=== PATIENT | female | born 1975 | race Caucasian/White ===

== ENCOUNTER 2017-06-12 21:52 | Emergency (ER) | payer OTHER ==
[2017-06-12] MEDS ORDERED: Proparacaine 0.5% Opth 15 ML BOT ONE (22:02)
[2017-06-12] MEDS ORDERED: Fluorescein Opthalmic Strip ONE (22:02)
== END 2017-06-12 22:26 | disposition home or self-care (01) ==
LOC: SCSER 21:52
DX: H10.9 Unspecified conjunctivitis (principal); F41.9 Anxiety disorder, unspecified; Z79.899 Other long term (current) drug therapy
CPT/HCPCS: 99283

== ENCOUNTER 2017-08-23 13:04 | Emergency (ER) | payer OTHER ==
[2017-08-23 13:58] LABS: Bilirubin Negative (Negative); Blood, Urine Large (Negative); Clarity CLOUDY (Clear); Glucose, Urine (Dipstick) Negative (Negative); Leukocyte Small (Negative); Nitrite Negative (Negative); Protein, Urine (Dipstick) > or equal to 300 mg/dL (Neg-Trace); Specific Gravity, Urine 1.017 (1.002-1.036); Urobilinogen 0.2 mg/dL (0.2-1.0); pH, Urine 6.5 (5.0-9.0)
[2017-08-23 14:00] LABS: Bacteria/HPF 3+ HPF (None Seen); Hyaline Casts/LPF 0-3 HYALINE CAST LPF (0-3 Hyaline); RBC/HPF 21-50 HPF (0-3); Squamous Epithelial 0-3 HPF (0-3); WBC/HPF 0-3 HPF (0-3)
[2017-08-23] MEDS ORDERED: Ketorolac Tromethamine 60 MG/2 ML VIAL ONE (14:15)
== END 2017-08-23 14:24 | disposition home or self-care (01) ==
LOC: ERS 13:04
DX: M54.5 Low back pain (principal); F41.9 Anxiety disorder, unspecified; Z79.899 Other long term (current) drug therapy
CPT/HCPCS: 81003; 81015; 96372; J1885

== ENCOUNTER 2018-05-07 10:42 | Emergency (ER) | payer OTHER, SELFPAY ==
[2018-05-07] MEDS ORDERED: Acetaminophen 500 MG TAB ONE (12:39)
--- NOTE | 2018-05-07 13:21 | RAD ---
LEFT SHOULDER 3 VIEWS: Date: 05/07/18 HISTORY: Pain. COMPARISON: 11/10/04. FINDINGS: No fracture or dislocation. Glenohumeral joint space is preserved. Visualized left ribs are unremarka ble. IMPRESSION: Unremarkable left shoulder 3 views. POS: [facility]
== END 2018-05-07 12:53 | disposition home or self-care (01) ==
LOC: ERS 10:42
DX: S46.912A Strain of unspecified muscle, fascia and tendon at shoulder and upper arm level, left arm, initial encounter (principal); F41.9 Anxiety disorder, unspecified; X58.XXXA Exposure to other specified factors, initial encounter

== ENCOUNTER → 2024-08-07 | Emergency (ER) | payer BC ==
[2024-08-07 20:30] LABS: Pregnancy Test - Urine (BHCG) Negative (Negative); Pregu Control Background? CLEAR/WHITE (CLR/WHITE); Pregu Control Bar Appear? YES (CONTROL BAR)
[2024-08-07 20:31] LABS: Bacteria/HPF None Seen HPF (None Seen); Bilirubin Negative (Negative); Blood, Urine Negative (Negative); CAUTI Indications for Culture Pelvic or flank pain; Clarity Clear (Clear); Glucose, Urine (Dipstick) Normal (Negative); Ketone, Urine 40 mg/dL (Negative); Leukocyte Negative Leu/uL (Negative); Nitrite Negative (Negative); Protein, Urine (Dipstick) Negative (Neg-Trace); RBC/HPF None Seen HPF (0-3); Squamous Epithelial 0-3 HPF (0-3); Urobilinogen Normal mg/dL (Less than 2); WBC/HPF 0-3 HPF (0-3); pH, Urine 5.5 (5.0-9.0)
[2024-08-07 20:32] LABS: Urine Culture Reflex No No
== END ==
LOC: ERS 19:36
DX: Z53.21 Procedure and treatment not carried out due to patient leaving prior to being seen by health care provider (principal)
CPT/HCPCS: 81001; 81025